=== PATIENT | female | born 1975 | race Caucasian/White ===

== ENCOUNTER 2017-06-02 19:24 | Emergency (ER) | payer OTHER ==
[2017-06-02 19:40] VITALS: BMI 37.5
--- NOTE | 2017-06-02 19:59 | PDOC ---
Rapid Medical Evaluation Chief Complaint: Back Pain Time Seen by Provider: 06/02/17 19:47 Medical Evaluation: Allergies Allergy/AdvReac Type Severity Reaction Status Date / Time Shellfish Allergy Severe Swelling Verified 07/09/16 16:53 Vital Signs Temp Pulse Resp BP Pulse Ox 98.1 F 86 17 140/73 98 06/02/17 19:38 06/02/17 19:38 06/02/17 19:38 06/02/17 19:38 06/02/17 19:38 06/02/17 19:56 I have performed a brief in-person evaluation of this patient. The patient presents with a chief complaint of: flank pain, rt low back pain, hx of rt ovarian cyst Pertinent physical exam findings: mild rt cva tenderness, rt suprapubic tenderness I have ordered the following: ua, hcg urine, cbc, comp The patient will proceed to the ED for further evaluation.
--- NOTE | 2017-06-02 20:23 | PDOC ---
History of Present Illness <Frank Ng - Last Filed: 06/02/17 20:18> - General History Source: Patient Exam Limitations: No Limitations - History of Present Illness Initial Comments: 06/02/17 22:06 Patient is a 42 year old female with a significant past medical history of bipolar disorder with schizophrenic tendencies and heroin abuse who presents to the ED with complaints of right sided flank pain that began tonight at 6:30pm. Patient reports right sided flank pain beginning 2 weeks ago suddenly while at home. She reports seeing PCP for pain, physician took ultrasound and diagnosed patient with ovarian cysts. Patient states PCP stated she should return in 3 months for follow up ultrasound. Patient reports right sided flank began at 6: 30pm suddenly while at home. Patient does not rate pain but states its intensity is currently lower than it was when it initially began. Patient is worried ovarian cyst might have burst. Denies urinary frequency, dysuria, hematuria. Denies constipation, diarrhea. Denies chest pain, SOB. Denies any other symptoms. Allergies: shellfish allergy Social history: No smoking. No alcohol. Former Heroin dependence Surgical history: None PMD: Dr. Hernandez <Norman Simon - Last Filed: 06/02/17 22:06> <Shante Martin - Last Filed: 06/03/17 01:55> - General Chief Complaint: Back Pain Stated Complaint: PAIN, ACUTE Time Seen by Provider: 06/02/17 19:47 Past History - Past Medical History Asthma: No Cardiac Disorders: No CVA: No COPD: No Diabetes: No GI Disorders: No Disorders: No HTN: No Kidney Stones: No Liver Disease: Yes (hep c) Psychiatric Problems: Yes (DEPRESSION) Seizures: No - Surgical History Abdominal Surgery: Yes (HERNIA, IMAN) Appendectomy: No Cardiac Surgery: No Cholecystectomy: No Lung Surgery: No Neurologic Surgery: No Orthopedic Surgery: No - Reproductive History PID: No - Suicide/Smoking/Psychosocial Hx Smoking Status: No Smoking History: Never smoked Have you smoked in the past 12 months: No Number of Cigarettes Smoked Daily: 7 Information on smoking cessation initiated: No 'Breaking Loose' booklet given: 07/12/15 Hx Alcohol Use: No Drug/Substance Use Hx: No Substance Use Type: None Hx Substance Use Treatment: Yes <Frank Ng - Last Filed: 06/02/17 20:18> <Norman Simon - Last Filed: 06/02/17 22:06> <Shante Martin - Last Filed: 06/03/17 01:55> - Past Medical History Allergies/Adverse Reactions: Allergies Allergy/AdvReac Type Severity Reaction Status Date / Time Shellfish Allergy Severe Swelling Verified 06/02/17 21:50 Home Medications: Ambulatory Orders Bupropion HCl [Wellbutrin Sr] 150 mg PO TID 06/02/17 Gabapentin [Neurontin -] 800 mg PO Q8H 06/02/17 Quetiapine Fumarate [Seroquel -] 400 mg PO HS 06/02/17 Review of Systems - Review of Systems Able to Perform ROS?: Yes Comments:: 06/02/17 22:06 GENERAL/CONSTITUTIONAL: No fever or chills. No weakness. HEAD, EYES, EARS, NOSE AND THROAT: No change in vision. No ear pain or discharge. No sore throat. CARDIOVASCULAR: No chest pain or shortness of breath. RESPIRATORY: No cough, wheezing, or hemoptysis. GASTROINTESTINAL: No nausea, vomiting, diarrhea or constipation. GENITOURINARY: No dysuria, frequency, or change in urination. MUSCULOSKELETAL: No joint or muscle swelling or pain. No neck or back pain. SKIN: No rash NEUROLOGIC: No headache, vertigo, loss of consciousness, or change in strength/ sensation. ENDOCRINE: No increased thirst. No abnormal weight change. HEMATOLOGIC/LYMPHATIC: No anemia, easy bleeding, or history of blood clots. ALLERGIC/IMMUNOLOGIC: No hives or skin allergy. All Other Systems: Reviewed and Negative <Norman Simon - Last Filed: 06/02/17 22:06> *Physical Exam - Vital Signs Last Vital Signs Temp Pulse Resp BP Pulse Ox 98.1 F 86 17 140/73 98 06/02/17 19:38 06/02/17 19:38 06/02/17 19:38 06/02/17 19:38 06/02/17 19:38 <Frank Ng - Last Filed: 06/02/17 20:18> - Vital Signs Last Vital Signs Temp Pulse Resp BP Pulse Ox 98.1 F 86 17 140/73 98 06/02/17 19:38 06/02/17 19:38 06/02/17 19:38 06/02/17 19:38 06/02/17 19:38 - Physical Exam Comments: 06/02/17 22:06 GENERAL: Awake, alert, and fully oriented, in no acute distress HEAD: No signs of trauma EYES: PERRLA, EOMI, sclera anicteric, conjunctiva clear ENT: Auricles normal inspection, hearing grossly normal, nares patent, oropharynx clear without exudates. Moist mucosa NECK: Normal ROM, supple, no lymphadenopathy, JVD, or masses LUNGS: Breath sounds equal, clear to auscultation bilaterally. No wheezes, and no crackles HEART: Regular rate and rhythm, normal S1 and S2, no murmurs, rubs or gallops ABDOMEN: Soft, nontender, normoactive bowel sounds. No guarding, no rebound. No masses EXTREMITIES: Normal range of motion, no edema. No clubbing or cyanosis. No cords, erythema, or tenderness NEUROLOGICAL: Cranial nerves II through XII grossly intact. Normal speech, SKIN: Warm, Dry, normal turgor, no rashes or lesions noted. <Norman Simon - Last Filed: 06/02/17 22:06> - Vital Signs Last Vital Signs Temp Pulse Resp BP Pulse Ox 98.1 F 86 17 140/73 98 06/02/17 19:38 06/02/17 19:38 06/02/17 19:38 06/02/17 19:38 06/02/17 19:38 <Shante Martin - Last Filed: 06/03/17 01:55> ED Treatment Course - LABORATORY CBC & Chemistry Diagram: 06/02/17 20:50 06/02/17 20:50 - ADDITIONAL ORDERS Additional order review: 06/02/17 20:50 RBC 4.60 MCV 81.2 MCHC 33.4 RDW 14.0 MPV 8.0 D Neutrophils % 68.2 Lymphocytes % 18.0 Monocytes % 10.2 Eosinophils % 3.1 Basophils % 0.5 <Nomran Simon - Last Filed: 06/02/17 22:06> - LABORATORY CBC & Chemistry Diagram: 06/02/17 20:50 06/02/17 20:50 - ADDITIONAL ORDERS Additional order review: Laboratory Results 06/02/17 06/02/17 06/02/17 21:51 21:51 20:50 Sodium 141 Potassium 3.9 Chloride 107 Carbon Dioxide 27 Anion Gap 7 L BUN 11 D Creatinine 0.7 D Creat Clearance w eGFR > 60 Random Glucose 99 Calcium 8.1 L Total Bilirubin 0.2 D AST 13 L D ALT 24 Alkaline Phosphatase 86 Total Protein 6.7 Albumin 3.3 L Urine Color Yellow Urine Appearance Cloudy Urine pH 5.0 Ur Specific [place] 1.027 Urine Protein 1+ H Urine Glucose (UA) Negative Urine Ketones Negative Urine Blood 1+ H Urine Nitrite Negative Urine Bilirubin Negative Urine Urobilinogen Negative Urine WBC (Auto) 1 Urine RBC (Auto) 13 Ur Epithelial Cells Many Urine Mucus Few Urine HCG, Qual Negative 06/02/17 20:50 RBC 4.60 MCV 81.2 MCHC 33.4 RDW 14.0 MPV 8.0 D Neutrophils % 68.2 Lymphocytes % 18.0 Monocytes % 10.2 Eosinophils % 3.1 Basophils % 0.5 <Shante Martin - Last Filed: 06/03/17 01:55> Medical Decision Making - Medical Decision Making 06/03/17 01:53 Patient was signed out to me by Dr. Marie gave him to follow-up on her ultrasound. Her abdominal ultrasound was essentially negative. There were no significant swelling in the kidney, no obstructing stones. Her pelvic ultrasound showed no ovarian torsion, there were nabothian cysts near cervix,no masses She has been seen by Dr. Zhou and they already have a plan to have a repeat pelvic ultrasound in 3 months to follow the cysts. <Shante Martin - Last Filed: 06/03/17 01:55> *DC/Admit/Observation/Transfer - Attestations Physician Attestion: 06/02/17 20:23 I, Dr. Frank Ng, attest that this document has been prepared under my direction and personally reviewed by me in its entirety. I further attest, that it accurately reflects all work, treatment, procedures and medical decision -making performed by me. <Frank Ng - Last Filed: 06/02/17 20:18> - Attestations Scribe Attestion: 06/02/17 22:09 Documentation prepared by Norman Simon, acting as nuclear medical technologist for Frank Ng MD/. <Norman Simon - Last Filed: 06/02/17 22:06> <MarioShante Shruti - Last Filed: 06/03/17 01:55> Diagnosis at time of Disposition: Right flank pain - Discharge Dispostion Disposition: HOME Condition at time of disposition: Stable - Referrals Referrals: Sherry Temple MD [Primary Care Provider] - - Patient Instructions Printed Discharge Instructions: DI for Flank Pain Additional Instructions: please follow up with your regular physician
[2017-06-02 20:56] LABS: BASOPHIL 0.5 % (0-2.0); EOSINOPHIL 3.1 % (0-4.5); MCH 27.1 pg (25.7-33.7); MCHC 33.4 g/dl (32.0-36.0); MEAN CELL VOLUME 81.2 fl (80-96); NEUTROPHILS 68.2 % (42.8-82.8); PLATELET COUNT 226 K/MM3 (134-434); WHITE BLOOD COUNT 6.1 K/mm3 (4.0-10.0)
[2017-06-02 21:37] LABS: ALBUMIN 3.3 g/dl (3.4-5.0); ANION GAP 7 (8-16); BILIRUBIN,TOTAL 0.2 mg/dL (0.2-1.0); CALCIUM 8.1 mg/dL (8.5-10.1); CO2 27 mmol/L (21-32); CREATININE 0.7 mg/dL (0.55-1.02); GLUCOSE,RANDOM 99 mg/dL (74-106); SGOT/AST 13 U/L (15-37); TOT PROT 6.7 g/dl (6.4-8.2)
[2017-06-02 21:45] LABS: ALK PHOS 86 U/L (45-117); SGPT/ALT 24 U/L (12-78)
[2017-06-02 22:18] LABS: URINE APPEARANCE CLOUDY; URINE BILIRUBIN NEGATIVE (NEGATIVE); URINE BLOOD 1+ (NEGATIVE); URINE COLOR YELLOW; URINE GLUCOSE (UA) NEGATIVE (NEGATIVE); URINE KETONE NEGATIVE (NEGATIVE); URINE NITRITE NEGATIVE (NEGATIVE); URINE UROBILINOGEN NEGATIVE mg/dL (0.2-1.0)
[2017-06-02 22:19] LABS: URINE PROTEIN 1+ (NEGATIVE)
[2017-06-02 22:27] LABS: URINE MUCUS FEW; URINE RBC 13; URINE WBC 1
[2017-06-03 00:58] VITALS: BP 130/78; PULSE 76; TEMP 98
[2017-06-03 09:50] LABS: URINE LEUK ESTERASE Negative (NEGATIVE)
== END 2017-06-03 00:56 | disposition home or self-care (01) ==
LOC: JER 19:24
DX: R10.31 Right lower quadrant pain (principal); N83.201 Unspecified ovarian cyst, right side; F31.9 Bipolar disorder, unspecified; F20.9 Schizophrenia, unspecified; F11.10 Opioid abuse, uncomplicated; B18.2 Chronic viral hepatitis C
CPT/HCPCS: 36415; 76700-TC; 76830-TC; 80053; 81003; 81015; 84703; 85025; 87086; 99283-25

== ENCOUNTER 2018-06-03 09:04 | Emergency (ER) | payer OTHER ==
[2018-06-03 09:14] VITALS: BMI 32.0
[2018-06-03] MEDS ORDERED: KETOROLAC TROMETHAMINE 60 MG/2 ML VIAL IM ONE (10:04)
[2018-06-03] MEDS ORDERED: KETOROLAC TROMETHAMINE 60 MG/2 ML VIAL ONE (10:06)
--- NOTE | 2018-06-03 10:10 | PDOC ---
History of Present Illness - General Chief Complaint: Pain, Acute Stated Complaint: LEG PAIN Time Seen by Provider: 06/03/18 09:50 History Source: Patient Exam Limitations: No Limitations - History of Present Illness Initial Comments: 06/03/18 10:06 Patient came for 1-1/2-2 weeks pain to left hip/buttock with radiating pain down posterior and lateral leg. Patient works as a daycare volunteer however denies any knowledge of significant injury, heavy lifting Occurred: reports: last week Severity: reports: moderate Pain Location: reports: lower extremity (right buttock radiating down lateral right leg ) Method of Injury: Yes: unknown Modifying Factors: improves with: None Past History - Travel Traveled outside of the country in the last 30 days: No Close contact w/someone who was outside of country & ill: No - Past Medical History Allergies/Adverse Reactions: Allergies Allergy/AdvReac Type Severity Reaction Status Date / Time Shellfish Allergy Severe Swelling Verified 06/02/17 21:50 Home Medications: Ambulatory Orders Bupropion HCl [Wellbutrin Sr] 150 mg PO TID 06/02/17 Gabapentin [Neurontin -] 800 mg PO Q8H 06/02/17 Quetiapine Fumarate [Seroquel -] 400 mg PO HS 06/02/17 Cyclobenzaprine HCl 10 mg PO Q8H PRN #3 tablet 06/03/18 Diazepam [Valium] 5 mg PO DAILY #3 tablet MDD 1 06/03/18 Lidocaine 5% Patch [Lidoderm -] 1 patch TP DAILY #7 patch 06/03/18 Asthma: No Cardiac Disorders: No CVA: No COPD: No Diabetes: No GI Disorders: No Disorders: No HTN: No Kidney Stones: No Liver Disease: Yes (hep c) Psychiatric Problems: Yes (DEPRESSION) Seizures: No - Surgical History Abdominal Surgery: Yes (HERNIA, IMAN) Appendectomy: No Cardiac Surgery: No Cholecystectomy: No Lung Surgery: No Neurologic Surgery: No Orthopedic Surgery: No - Reproductive History PID: No - Immunization History Immunization Up to Date: Yes - Suicide/Smoking/Psychosocial Hx Smoking Status: No Smoking History: Current every day smoker Have you smoked in the past 12 months: No Number of Cigarettes Smoked Daily: 7 Information on smoking cessation initiated: No 'Breaking Loose' booklet given: 07/12/15 Hx Alcohol Use: No Drug/Substance Use Hx: No Substance Use Type: None Hx Substance Use Treatment: Yes Trauma Specific PMHX - Complaint Specific PMHX Arthritis: No *Physical Exam - Vital Signs Last Vital Signs Temp Pulse Resp BP Pulse Ox 99.2 F 91 H 16 125/78 100 06/03/18 09:10 06/03/18 09:10 06/03/18 09:10 06/03/18 09:10 06/03/18 09:10 - Physical Exam General Appearance: Yes: Nourished, Appropriately Dressed HEENT: positive: BHARATHI, Normal ENT Inspection, TMs Normal, Pharynx Normal Neck: positive: Supple. negative: Tender Respiratory/Chest: positive: Lungs Clear Musculoskeletal: positive: Normal Inspection, Muscle Spasm (mild noted to lumbar posterior aspect paravertebral spinous muscles). negative: CVA Tenderness Extremity: positive: Normal Capillary Refill, Normal Inspection, Normal Range of Motion, Tender (tenderness reproduced midpoint gluteus, with some tenderness along the lateral aspect of left buttock and thigh. Has no bone tenderness, crepitus or step-offs, range of motion is flexible as patient is sitting crosslegged on stretcher. Is ambulatory without unsteadiness or limp.) Integumentary: positive: Normal Color Neurologic: positive: [employer] solutions architect II-XII NML intact, Fully Oriented, Alert, Normal Response, Motor Strength 5/5. negative: Normal Mood/Affect (is mildly tearful however this may be her normal mood, admits to taking her Seroquel regularly) Progress Note - Progress Note Progress Note: When discussed planned and jujitsu shoes of cyclobenzaprine as patient may have adverse reaction with her psychiatric medications, recommended a dose of Toradol which patient then refused as she "could not take the pain of the injection". When attempts to convince patient to receive medication, she became agitated and stated "did not wish to be seen in fast track wanted to see a doctor". Patient was moved to [facility] and awaits evaluation by main emergency department physician *DC/Admit/Observation/Transfer Diagnosis at time of Disposition: Sciatica Qualifiers: Laterality: left Qualified Code(s): M54.32 - Sciatica, left side - Discharge Dispostion Disposition: HOME Condition at time of disposition: Stable Decision to Admit order: No - Prescriptions Prescriptions: Cyclobenzaprine HCl 10 mg PO Q8H PRN #3 tablet PRN Reason: spasm Diazepam [Valium] 5 mg PO DAILY #3 tablet MDD 1 Lidocaine 5% Patch [Lidoderm -] 1 patch TP DAILY #7 patch - Referrals Referrals: Art Salazar MD, FA[facility] [Staff Physician] - - Patient Instructions Printed Discharge Instructions: Sciatica Additional Instructions: Discontinue Motrin. Take 2 tabs Aleve twice a day for the next 3 days. Valium as prescribed. Lidocaine patch as prescribed. Follow-up with your doctor this week. To schedule an MRI. He can also follow-up with Dr. Acuna spine. Return to the emergency department for any weakness numbness new or different bowel or bladder incontinence or for any concerns. - Post Discharge Activity
[2018-06-03] MEDS ORDERED: KETOROLAC TROMETHAMINE 30 MG/1 ML VIAL IM ONE (11:12)
[2018-06-03] MEDS ORDERED: diazePAM 5 MG TABLET PO ONE (11:12)
[2018-06-03] MEDS ORDERED: LIDOCAINE 5% TOPICAL PATCH TP ONE (11:12)
[2018-06-03] MEDS ORDERED: LIDOCAINE 5% TOPICAL PATCH ONE (11:37)
[2018-06-03] MEDS ORDERED: diazePAM 5 MG TABLET ONE (11:37)
[2018-06-03] MEDS ORDERED: KETOROLAC TROMETHAMINE 30 MG/1 ML VIAL ONE (11:38)
--- NOTE | 2018-06-03 13:00 | PDOC ---
*Physical Exam - Vital Signs Last Vital Signs Temp Pulse Resp BP Pulse Ox 99.2 F 91 H 16 125/78 100 06/03/18 09:10 06/03/18 09:10 06/03/18 09:10 06/03/18 09:10 06/03/18 09:10 - Physical Exam Comments: 06/03/18 12:55 Vitals: Triage Vital signs reviewed General Appearance: no acute distress, well nourished well developed, Head: Atraumatic, Musculoskeletal: Reproducible left lower back discomfort radiates to left leg no weakness no numbness Extremities: Full range of motion to all extremities, no cyanosis, clubbing, or edema Skin: Warm and dry, no rashes or lesions, no rash, no petechiae Neuro: AOX3; Cranial Nerves 2-12 grossly intact, Strength intact to all extremities, Sensation intact to all extremities,gait normal Psych: normal mood, normal affect ED Treatment Course - RADIOLOGY Radiology Studies Ordered: Category Date Time Status DUPLEX VASCUL US-1 LEG [US] Stat Ultrasound 06/03/18 11:27 Ordered - Medications Given in the ED: ED Medications Discontinued Medications Generic Name Dose Route Start Last Admin Trade Name Freq PRN Reason Stop Dose Admin Diazepam 5 mg 06/03/18 11:12 06/03/18 11:49 Valium - PO 06/03/18 11:13 5 mg ONCE ONE Administration Ketorolac Tromethamine 60 mg 06/03/18 10:04 06/03/18 10:35 Toradol Injection - IM 06/03/18 10:05 Not Given ONCE ONE Ketorolac Tromethamine 30 mg 06/03/18 11:12 06/03/18 11:49 Toradol Injection - IM 06/03/18 11:13 30 mg ONCE ONE Administration Lidocaine 1 patch 06/03/18 11:12 06/03/18 11:49 Lidoderm Patch - TP 06/03/18 11:13 1 patch ONCE ONE Administration Medical Decision Making - Medical Decision Making 06/03/18 12:56 History and examination consistent with sciatica No red flags on patient's back pain history. There is no weakness no numbness no new bowel or bladder incontinence. Patient initially wanted an ultrasound done of her lower extremity to r/o dvt, although on exam there was no swelling to the leg. She is now refusing the ultrasound Status post Valium Toradol lidocaine patch patient feels much better is ambulate comfortably around the emergency department. She will call her doctor today to schedule an MRI we'll discharge her on Aleve and Valium for 2 days Findings, the need for follow-up and strict return instructions discussed patient. *DC/Admit/Observation/Transfer Diagnosis at time of Disposition: Sciatica Qualifiers: Laterality: left Qualified Code(s): M54.32 - Sciatica, left side - Discharge Dispostion Disposition: HOME Decision to Admit order: No - Prescriptions Prescriptions: Cyclobenzaprine HCl 10 mg PO Q8H PRN #3 tablet PRN Reason: spasm Diazepam [Valium] 5 mg PO DAILY #3 tablet MDD 1 Lidocaine 5% Patch [Lidoderm -] 1 patch TP DAILY #7 patch - Referrals Referrals: Art Salazar MD, [facility] [Staff Physician] - - Patient Instructions Printed Discharge Instructions: Sciatica Additional Instructions: Discontinue Motrin. Take 2 tabs Aleve twice a day for the next 3 days. Valium as prescribed. Lidocaine patch as prescribed. Follow-up with your doctor this week. To schedule an MRI. He can also follow-up with Dr. Acuna spine. Return to the emergency department for any weakness numbness new or different bowel or bladder incontinence or for any concerns. - Post Discharge Activity
[2018-06-03 13:33] VITALS: BP 118/75; PULSE 68; TEMP 98.2
[2018-06-03] MEDS ORDERED: LIDOCAINE PATCH REMOVAL MC SCH (22:00)
== END 2018-06-03 13:33 | disposition home or self-care (01) ==
LOC: JERFT 09:04 → JER 09:04
PROC: 3E0233Z Introduction of Anti-inflammatory into Muscle, Percutaneous Approach (ICD-10-PCS; principal; 2018-06-03)
DX: M54.32 Sciatica, left side (principal); F32.9 Major depressive disorder, single episode, unspecified; B19.20 Unspecified viral hepatitis C without hepatic coma; F17.210 Nicotine dependence, cigarettes, uncomplicated
CPT/HCPCS: 99281-25